=== PATIENT | female | born 1950 | race Caucasian/White ===

== ENCOUNTER 2016-08-08 06:33 | Day surgery (SDC) | payer MEDICARE, SELFPAY ==
[~2016-08-08 06:33] MED LIST: ALDACTONE50 M1 PO; APIDRA100 U/M SQ; APIDRA100 UNIT/1 SQ; ASPIR 8181 M1 PO; CONSTULOSE10 G/15 ML PO; CONSTULOSE10 GM/15 M; CORGARD20 M2 PO; COUMADIN5 MG PO; CYMBALTA60 MG PO; FERROUS SU324 ( 65 ) PO; LASIX40 M1 PO; LEVEMIR100 U/M SQ; LEVEMIR100 UNITS/ SC; LIPITOR10 MG PO; LOPRESSOR25 MG/TA7 PO; LOVENOX; LOVENOX100 MG/ML SQ; METFORMIN HCL500 MG PO; MILK THISTLE500 M1 PO; NAMENDA10 M1 PO; NITROSTAT0.4 M1 SL; NOVOLOG FL100 UNIT/2 SC; PAXIL40 MG PO; POTASSIUM CHLO10 ME2 PO; PRILOSEC20 MG PO; PROTONIX40 M2 PO; PROZAC20 M3 PO; ULTRAM50 MG PO; VENTOLIN HFA18 G2 PO; XIFAXAN550 M1 PO
[2016-08-08 08:13] LABS: BASO % 0.5 % (0-2); EOS % 3.4 % (0-7); EOSINOPHIL ABSOLUTE COUNT 0.1 tho/cmm (0.0-0.7); HCT-HEMATOCRIT 37.2 % (34.0-49.0); HGB-HEMOGLOBIN 12.2 gm/dl (12.0-15.5); IMMATURE GRANULOCYTES ABSOLUTE 0.01 tho/cmm (0-0.03); IMMATURE GRANULOCYTES PERCENT 0.2 % (0-0.3); LYMPH % 13.7 % (20-45); LYMPH ABSOLUTE COUNT 0.6 tho/cmm (0.8-4.5); MCH (MEAN CORPUSCULAR HGB) 29.7 pg (28.0-32.0); MCHC MEAN CORPUSCULAR HGB CONC 32.8 % (32.0-36.0); MCV (MEAN CELL VOLUME) 90.5 fl (82.0-96.0); MEAN PLATELET VOLUME 12.6 cmc (9.4-12.4); MONO % 7.8 % (0-12); MONOCYTE ABSOLUTE COUNT 0.3 tho/cmm (0.0-1.2); NEUTROPHILS % 74.4 % (40-80); PLATELET COUNT 67 tho/cmm (150-450); RED BLOOD COUNT 4.11 mil/cmm (4.00-5.20); RED CELL DISTRIBUTION WIDTH 15.5 % (12.4-16.4); WHITE BLOOD COUNT 4.1 tho/cmm (4.0-10.0)
[2016-08-08 08:29] LABS: ANION GAP 10 mmol/L (0-20); BLOOD UREA NITROGEN 10 mg/dl (6-24); CALCIUM 8.9 mg/dl (8.5-10.5); CARBON DIOXIDE-VENOUS 30 mmol/L (22-32); CHLORIDE 106 mmol/l (96-110); CREATININE 0.86 mg/dl (0.50-1.10); GLUCOSE 174 mg/dL (70-110); SODIUM 142 mmol/L (135-145); eGFR VALUE FOR BLACK 80 mL/Min
[2016-08-08 08:31] LABS: POTASSIUM 4.3 mmol/L (3.7-5.1)
== END 2016-08-08 10:15 ==
LOC: ENDOS 06:33 → SHSA 06:39 → ENDOS 08:40
PROVIDERS: Anesthesiology
PROC: 0DBN8ZZ Excision of Sigmoid Colon, Via Natural or Artificial Opening Endoscopic (ICD-10-PCS; principal; 2016-08-08)
PROC: 0DBL8ZZ Excision of Transverse Colon, Via Natural or Artificial Opening Endoscopic (ICD-10-PCS; 2016-08-08)
PROC: 0DJ08ZZ Inspection of Upper Intestinal Tract, Via Natural or Artificial Opening Endoscopic (ICD-10-PCS; 2016-08-08)
DX: I85.00 Esophageal varices without bleeding (principal); D12.3 Benign neoplasm of transverse colon; D12.5 Benign neoplasm of sigmoid colon; K64.4 Residual hemorrhoidal skin tags; K31.9 Disease of stomach and duodenum, unspecified; I48.91 Unspecified atrial fibrillation; M19.90 Unspecified osteoarthritis, unspecified site; E11.9 Type 2 diabetes mellitus without complications; F41.9 Anxiety disorder, unspecified; F32.9 Major depressive disorder, single episode, unspecified; J45.909 Unspecified asthma, uncomplicated; K21.9 Gastro-esophageal reflux disease without esophagitis; H91.90 Unspecified hearing loss, unspecified ear; G30.9 Alzheimer's disease, unspecified; F02.80 Dementia in other diseases classified elsewhere, unspecified severity, without behavioral disturbance, psychotic disturbance, mood disturbance, and anxiety; F17.200 Nicotine dependence, unspecified, uncomplicated; Z79.4 Long term (current) use of insulin; Z79.82 Long term (current) use of aspirin; Z79.899 Other long term (current) drug therapy; Z86.010 Personal history of colon polyps; Z86.718 Personal history of other venous thrombosis and embolism; Z86.73 Personal history of transient ischemic attack (TIA), and cerebral infarction without residual deficits; Z90.49 Acquired absence of other specified parts of digestive tract; Z90.710 Acquired absence of both cervix and uterus; Z96.653 Presence of artificial knee joint, bilateral; Z98.890 Other specified postprocedural states